=== PATIENT | female | born 1990 | race Hispanic/Latino ===

== ENCOUNTER 2022-01-24 11:33 | Emergency (ER) | payer MEDICAID ==
[2022-01-24 11:54] VITALS: BP 116/87
[2022-01-24 13:33] LABS: Mean Corpuscular HGB Conc 36 % (30-34); Mean Corpuscular Volume 91 fl (79-97); Platelet Count 333 K/mm3 (140-440); Red Blood Count 4.92 M/mm3 (3.65-5.03); Red Cell Distribution Width 14.9 % (13.2-15.2)
[2022-01-24 13:34] LABS: Hematocrit 44.9 % (30.3-42.9); Hemoglobin 16.1 gm/dl (10.1-14.3)
[2022-01-24 13:55] LABS: Alanine Aminotransferase 30 units/L (7-56); Albumin 5.6 g/dL (3.9-5); BUN/Creatinine Ratio 17; Blood Urea Nitrogen 15 mg/dL (7-17); Calcium 10.5 mg/dL (8.4-10.2); Hemolysis Index 2
== END 2022-01-24 19:06 | disposition left against medical advice (07) ==
LOC: ED 11:33
DX: R10.9 Unspecified abdominal pain (principal); Z53.21 Procedure and treatment not carried out due to patient leaving prior to being seen by health care provider
CPT/HCPCS: 36415; 80053; 85027